=== PATIENT | female | born 2000 | race Two or more races ===

== ENCOUNTER 2022-04-26 15:47 | Emergency (ER) | payer MEDICAID ==
[~2022-04-26] VITALS: Ht 160 cm; Wt 54.5 kg
[2022-04-26] MEDS ORDERED: FAMOTIDINE 20 MG TAB PO ONE (18:15)
[2022-04-26] MEDS ORDERED: diphenhdrAMINE HCL 25 MG CAP PO ONE (18:15)
[2022-04-26] MEDS ORDERED: DexAMETHasone 4 MG TAB PO ONE (18:15)
[2022-04-26] MEDS ORDERED: EPIN0.3I24 IJ (18:26)
[2022-04-26 19:00] VITALS: BP 131/65
== END 2022-04-26 19:07 | disposition home or self-care (01) ==
LOC: ER 15:47
DX: T78.40XA Allergy, unspecified, initial encounter (principal); F12.90 Cannabis use, unspecified, uncomplicated; X58.XXXA Exposure to other specified factors, initial encounter
CPT/HCPCS: 99284; J8540

== ENCOUNTER 2022-05-14 01:13 | Emergency (ER) | payer MEDICAID ==
[~2022-05-14] VITALS: Ht 160 cm; Wt 54.5 kg
[~2022-05-14 01:13] MED LIST: EPIN0.3I24 IJ
[2022-05-14] MEDS ORDERED: EPINEPHrine HCL 1 MG/1 ML AMP IM ONE (01:45)
[2022-05-14] MEDS ORDERED: FAMOTIDINE (10MG/ML) 2ML VL IV ONE (01:45)
[2022-05-14] MEDS ORDERED: methylPREDNISolone SOD SUCC 125 MG/2 ML VL IV ONE (01:45)
[2022-05-14] MEDS ORDERED: diphenhdrAMINE HCL 50 MG/1 ML VL IV ONE (01:45)
[2022-05-14 02:28] VITALS: BP 121/79
[2022-05-14] MEDS ORDERED: PRED20TA2 PO (03:46)
== END 2022-05-14 04:17 | disposition home or self-care (01) ==
LOC: ER 01:19
DX: T78.40XA Allergy, unspecified, initial encounter (principal); T78.2XXA Anaphylactic shock, unspecified, initial encounter; Z79.899 Other long term (current) drug therapy; Y92.89 Other specified places as the place of occurrence of the external cause
CPT/HCPCS: 96372; 96374; 96375; 99284; J0171; J1200; J2930; J3490; J7030